=== PATIENT | female | born 1975 | race Caucasian/White ===

== ENCOUNTER 2022-02-11 16:19 | Emergency (ER) | payer MEDICAID ==
[~2022-02-11] VITALS: Ht 175.3 cm; Wt 78.0 kg
[2022-02-11 16:40] VITALS: BP 137/73
--- NOTE | 2022-02-11 17:35 | NUR ---
PT AMBULATED TO ER BED 12
--- NOTE | 2022-02-11 17:38 | NUR ---
Dr. Cortes at bedside evaluating patient.
[2022-02-11] MEDS ORDERED: LIDOCAINE 5% 1 EA PATCH TP STA (17:43)
[2022-02-11] MEDS ORDERED: CYCLOBENZAPRINE 10 MG TAB PO ONE (17:45)
[2022-02-11] MEDS ORDERED: KETOROLAC 30 MG/ML VIAL IM ONE (17:45)
[2022-02-11] MEDS ORDERED: LID5T TP (18:49)
[2022-02-11] MEDS ORDERED: CYCL-711 PO (18:49)
[2022-02-11] MEDS ORDERED: DICL100G5 TP (18:49)
[2022-02-11] MEDS ORDERED: IBUP-2213 PO (18:49)
[2022-02-11] MEDS ORDERED: ONDA-188 PO (18:49)
--- NOTE | 2022-02-11 19:04 | NUR ---
Leonard lockwood in ED - 02/11/22 at 1905 by CHARLES Obtained urine sample and ASTRID specimen. Walked to lab and handed to CPT Daphne.
--- NOTE | 2022-02-11 19:15 | NUR ---
Patient discharged with v/s stable. Written and verbal after care instructions given. Patient alert, oriented and verbalized understanding of instructions. Ambulatory with steady gait. All questions addressed prior to discharge. ID band removed. Patient advised to follow up with PMD. Rx of FLEXERIL, DICLOFENAC SODIUM, IBUPROFEN, LIDODERM AND ZOFRAN given. Opportunity to ask questions provided and answered.
== END 2022-02-11 19:15 | disposition home or self-care (01) ==
LOC: MED 16:19
DX: S16.1XXA Strain of muscle, fascia and tendon at neck level, initial encounter (principal); G43.909 Migraine, unspecified, not intractable, without status migrainosus; Z79.899 Other long term (current) drug therapy; Z79.1 Long term (current) use of non-steroidal anti-inflammatories (NSAID); Z88.5 Allergy status to narcotic agent; X58.XXXA Exposure to other specified factors, initial encounter; Y92.89 Other specified places as the place of occurrence of the external cause; Y93.89 Activity, other specified; Y99.8 Other external cause status
CPT/HCPCS: 72050; 96372; 99283; J1885

== ENCOUNTER 2024-04-15 10:22 | Emergency (ER) | payer SELFPAY ==
[~2024-04-15] VITALS: Ht 172.7 cm; Wt 72.6 kg
[~2024-04-15 10:22] MED LIST: CYCL-711 PO; DICL100G32 TP; IBUP-2213 PO; LID5T TP; ONDA-188 PO
[2024-04-15 10:27] VITALS: BP 113/75; PULSE 98; RESP 18; TEMP 97.8; O2SAT 100
[2024-04-15] MEDS ORDERED: TRANEXAMIC ACID 1,000 MG/10 ML VIAL ONE (11:43)
[2024-04-15] MEDS: PHENYLEPHRINE 1% 15 ML BTL NS ONE (12:02)
[2024-04-15] MEDS ORDERED: OXYM20SP1 NS (12:47)
[2024-04-15] MEDS ORDERED: AMOX1TAB8 PO (12:47)
[2024-04-15] MEDS ORDERED: FLUC150T64 PO (12:47)
[2024-04-15 13:13] VITALS: BP 115/77; PULSE 92; RESP 18; TEMP 97.8; O2SAT 100
== END 2024-04-15 13:13 | disposition home or self-care (01) ==
LOC: MED 10:22
DX: S02.2XXA Fracture of nasal bones, initial encounter for closed fracture (principal); Z98.84 Bariatric surgery status; Z79.1 Long term (current) use of non-steroidal anti-inflammatories (NSAID); Z79.2 Long term (current) use of antibiotics; Z79.899 Other long term (current) drug therapy; Z88.0 Allergy status to penicillin; Z88.5 Allergy status to narcotic agent; W22.8XXA Striking against or struck by other objects, initial encounter; Y93.89 Activity, other specified; Y92.89 Other specified places as the place of occurrence of the external cause; Y99.8 Other external cause status
CPT/HCPCS: 30901; 70160; 99284; J3490

== ENCOUNTER 2024-04-17 16:10 | Emergency (ER) | payer SELFPAY ==
[~2024-04-17] VITALS: Ht 172.7 cm; Wt 74.8 kg
[~2024-04-17 16:10] MED LIST changes: +AMOX1TAB8 PO; +FLUC150T64 PO; +OXYM20SP1 NS
[2024-04-17 16:52] VITALS: BP 96/58; PULSE 99; RESP 17; TEMP 98.3; O2SAT 100
== END 2024-04-17 17:22 | disposition home or self-care (01) ==
LOC: MED 16:10
DX: R04.0 Epistaxis (principal); Z46.89 Encounter for fitting and adjustment of other specified devices; Z79.1 Long term (current) use of non-steroidal anti-inflammatories (NSAID); Z79.2 Long term (current) use of antibiotics; Z79.899 Other long term (current) drug therapy; Z88.0 Allergy status to penicillin; Z88.5 Allergy status to narcotic agent
CPT/HCPCS: 99281